=== PATIENT | male | born 2005 | race Asian ===

== ENCOUNTER 2025-01-30 01:34 | Emergency (ER) | payer OTHER ==
[~2025-01-30] VITALS: Ht 165.1 cm; Wt 81.8 kg
[2025-01-30] MEDS: IBUPROFEN 800 MG TAB PO ONE (04:08)
[2025-01-30 05:24] VITALS: TEMP 98.6
[2025-01-30 09:47] VITALS: BP 127/66; O2SAT 99
== END 2025-01-30 09:55 | disposition home or self-care (01) ==
LOC: M ED 01:34
DX: M25.561 Pain in right knee (principal)